=== PATIENT | male | born 1990 | race African-American/Black ===

== ENCOUNTER 2022-10-06 19:21 | Emergency (ER) | payer MEDICAID ==
--- NOTE | 2022-10-06 21:01 | NUR ---
CALLED FOR TRIAGE. NO ANSWER
--- NOTE | 2022-10-06 21:23 | NUR ---
CALLED FOR TRIAGE. NO ANSWER
== END 2022-10-06 21:25 | disposition left against medical advice (07) ==
LOC: ER 19:28
DX: Z53.21 Procedure and treatment not carried out due to patient leaving prior to being seen by health care provider (principal)